=== PATIENT | female | born 1985 ===

== ENCOUNTER 2016-07-28 10:36 | Inpatient (IN) | payer OTHER ==
[2016-07-28] VITALS (9 sets, daily range): BP systolic 115–125; BP diastolic 63–74; PULSE 72–99; TEMP 98–98.5
[~2016-07-28] VITALS: Ht 157.5 cm; Wt 75.5 kg
[2016-07-28 11:50] LABS: BASO % 0.2 % (0.0-2.0); EOS % 0.1 % (0-4.0); GRAN # 10.5 (1.4-6.5); GRAN % 85.4 % (42.2-75.2); LYMPH # 1.2 (1.2-3.4); LYMPH % 9.9 % (20.0-51.0); MEAN CELL VOLUME 78 fl (80.0-100.0); MEAN CORPUSCULAR HGB CONC 31 g/dl (33.0-37.0); MONO # 0.5 (0.1-0.6); MONO % 3.7 % (1.7-9.3); PLATELET COUNT 170 K/mm3 (130-400); RED BLOOD COUNT 4.26 M/mm3 (4.10-5.30); WHITE BLOOD COUNT 12.3 K/mm3 (4.8-10.8)
[2016-07-28 12:10] LABS: HEMATOCRIT 33.3 % (37.0-47.0); HEMOGLOBIN 10.4 g/dl (12.5-16.0); MEAN CORPUSCULAR HEMOGLOBIN 24 pg (27.0-31.0)
[2016-07-28] MEDS ORDERED: PRENATAL (12:42)
[2016-07-29 01:30] VITALS: BP 106/61; PULSE 89; TEMP 98.2
[2016-07-29] MEDS ORDERED: IBU800 M1 PO (07:19)
[2016-07-29] MEDS ORDERED: PERCOCET 325 MG1 TA2 PO (07:19)
[2016-07-29 07:42] VITALS: BP 116/61; PULSE 68; TEMP 98.1
== END 2016-07-29 16:34 | disposition home or self-care (01) | DRG 775 ==
LOC: LDRO 10:36 → LDR 11:06 → OB 14:30 → LDRO 07-30 16:21
PROVIDERS: Obstetrics & Gynecology
PROC: 10E0XZZ Delivery of Products of Conception, External Approach (ICD-10-PCS; principal; 2016-07-28)
PROC: 0HQ9XZZ Repair Perineum Skin, External Approach (ICD-10-PCS; 2016-07-28)
DX: O70.0 First degree perineal laceration during delivery (principal); Z3A.39 39 weeks gestation of pregnancy; Z37.0 Single live birth
CPT/HCPCS: J2590; J7120